=== PATIENT | male | born 1965 | race Caucasian/White ===

== ENCOUNTER 2022-10-05 04:51 | Emergency (ER) | payer MEDICAID ==
[~2022-10-05] VITALS: Ht 172.7 cm; Wt 70.0 kg
[2022-10-05 06:23] LABS: BASOPHILS % 0.2 % (0.0-2.0); CHLORIDE 102 mEq/L (98-107); HEMATOCRIT. 47.5 % (42.0-52.0); HEMOGLOBIN. 16.4 g/dL (14.0-18.0); LYMPHOCYTES % 7.2 % (20.0-50.0); MEAN CORPUSCULAR HEMOGLOBIN 33.9 pg (28.0-32.0); MEAN CORPUSCULAR VOLUME 97.9 fL (80.0-94.0); MEAN PLATELET VOLUME 7.7 fl (7.4-10.4); MONOCYTES % 5.7 % (2.0-8.0); NEUTROPHILS % 85.9 % (40.0-76.0); PLATELET 328 x1000/uL (130-400); RED BLOOD CELL COUNT 4.85 mill/uL (4.7-6.1); RED CELL DISTRIBUTION WIDTH 12.4 % (11.6-14.6)
[2022-10-05 06:34] LABS: ETHANOL BLOOD < 10 mg/dL
[2022-10-05 13:07] VITALS: BP 121/83
== END 2022-10-05 13:08 | disposition home or self-care (01) ==
LOC: ER 04:51
DX: R45.851 Suicidal ideations (principal); Z91.148 Patient's other noncompliance with medication regimen for other reason
CPT/HCPCS: 36415; 80053; 80178; 80307; 80320; 80329; 85025; 99283; G0480